=== PATIENT | male | born 1955 | race Caucasian/White ===

== ENCOUNTER → 2018-02-11 07:52 | Outpatient (CLI) | payer MEDICARE, BC, SELFPAY ==
[2018-02-11 08:40] LABS: Add Manual Diff / Slide Review NO; Basophils Percent Auto 0.4 % (0-2); Eosinophils Percent Auto 1.7 % (2-4); Hematocrit 47.3 % (41-53); Hemoglobin 16.8 g/dL (13.5-17.5); Lymphocytes Percent Auto 24.6 % (25-40); Mean Corpuscular HGB Conc 35.5 % (30-36); Mean Corpuscular Hemoglobin 32.4 PG (26-34); Mean Corpuscular Volume 91.2 fL (80-100); Monocytes Percent Auto 8.6 % (3-14); Neutrophils Absolute Auto 5000 /uL (3000-5900); Neutrophils Percent Auto 64.7 % (50-75); Platelet Count 225 X10^3/uL (150-400); Red Blood Cell Count 5.19 X10^6/uL (4.5-5.9); White Blood Cell Count 7.7 X10^3/uL (4.5-11.0)
[2018-02-11 09:17] LABS: Alanine Aminotransferase 26 IU/L (21-72); Albumin 4.4 g/dL (3.5-5.0); Albumin Globulin Ratio 1.6 (1.0-2.8); Alkaline Phosphatase 96 U/L (38-126); Aspartate Aminotransferase 20 IU/L (17-59); BUN Creatinine Ratio 16.3 (6-22); Bilirubin Total 0.7 mg/dL (0.2-1.3); Blood Urea Nitrogen 13 mg/dL (9-20); Calcium 9.5 mg/dL (8.4-10.2); Carbon Dioxide 31 mmol/L (22-32); Chloride 103 mmol/L (98-107); Cholesterol 242 mg/dL (140-199); Estimated Glomerular Filt Rate > 60.0 mL/min (>60); Globulin 2.7 g/dL (1.7-4.1); Glucose 92 mg/dL (80-110); HDL Cholesterol 54 mg/dL (40-60); HEMOLYSIS < 15 (0-50); LDL Cholesterol Calculated 150 mg/dL (<100); Potassium 4.9 mmol/L (3.4-5.1); Sodium 141 mmol/L (137-145); Total Protein 7.1 g/dL (6.3-8.2); Triglycerides 188 mg/dL (35-150)
[2018-02-11 09:42] LABS: Prostate Specific Antigen Scrn 1.65 ng/mL (0.1-4.0)
[2018-02-11 09:54] LABS: TSH w/ Reflex to FT4 2.13 uIU/mL (0.47-4.68)
== END ==
PROVIDERS: PCP Family Medicine; Visit Provider Family Medicine
DX: M47.22 Other spondylosis with radiculopathy, cervical region (principal); R42 Dizziness and giddiness
CPT/HCPCS: 36415; 80053; 80061; 84443; 85025; G0103

== ENCOUNTER 2020-02-13 16:38 | Emergency (ER) | payer MEDICARE, BC, SELFPAY ==
[2020-02-13] VITALS (22 sets, daily range): BP systolic 84–126; BP diastolic 53–86; PULSE 97–197; RESP 10–34; TEMP 36; O2SAT 94–100; BMI 25.7
--- NOTE | 2020-02-13 16:41 | DI.RAD.S_ITS ---
PROCEDURE: XR CHEST 1V INDICATIONS: chest pain TECHNIQUE: One view of the chest was acquired. COMPARISON: [facility], , CHEST 1 VIEW, 03/12/2011, 7:53. FINDINGS: Surgical changes and devices: None. Lungs and pleura: Subtle opacity in right lower lung field is seen, early developing right lower lobe infiltrates cannot be excluded. Left lung is clear. No pleural effusions or pneumothorax. Mediastinum: Mediastinal contours appear normal. Heart size is normal. Bones and chest wall: No suspicious bony lesions. Overlying soft tissues appear unremarkable. IMPRESSION: Subtle opacities in the right lower lung field concerning for developing right lower lobe infiltrates. No pleural effusion or pneumothorax. Dictated by: Last Moreland M.D. on 02/13/2020 at 17:36 Approved by: Last Moreland M.D. on 02/13/2020 at 17:36
--- NOTE | 2020-02-13 16:45 | ED_ITS ---
HPI - Arrhythmia/Palpitations General Chief Complaint: Arrhythmia/Palpitations Stated Complaint: high heart rate Time Seen by Provider: 02/13/20 16:43 Source: patient Mode of arrival: Ambulatory Limitations: no limitations History of Present Illness HPI narrative: Patient is a 64-year-old male with history of SVT presenting with dizziness and lightheadedness and tachycardia. He states he was pulling a metal piece out of something and was working extremely hard when he got lightheaded. He knew he had gone into SVT he tried getting himself out of it he even tried putting his face in ice water which has worked for him in the past but he was unsuccessful. Which is when he decided to go to the emergency department. He is found to be tachycardic with a heart rate in the 190s and hypotensive. He denies any shortness of breath MD complaint: rapid heart beat Duration: constant Context: occurred during exertion Arrhythmia history: SVT Related Data Home Medications Medication Instructions Recorded Confirmed No Known Home Medications 02/10/18 05/16/19 Allergies Allergy/AdvReac Type Severity Reaction Status Date / Time No Known Drug Allergies Allergy Verified 05/16/19 12:13 Review of Systems Review of Systems Narrative: GENERAL: Denies chills, fatigue, malaise, fever, sweats, travel HEENT: Denies sinus pain, ear pain, sore throat, difficulty swallowing, neck pain RESPIRATORY: Denies dyspnea, cough, wheezing, hemoptysis, sputum. CARDIOVASCULAR: See HPI GASTROINTESTINAL: Denies nausea, vomiting, abdominal pain, diarrhea, constipation, melena. : Denies dysuria, frequency, incontinence, hematuria, urinary retention, flank pain. MUSCULOSKELETAL: Denies weakness, joint pain, or bony pain SKIN: No rash, no erythema, no pruritus NEUROLOGIC: Denies weakness, dizziness, headache, numbness, change in speech, confusion PSYCHIATRIC: No concerning psychosocial issues. 12 point review of systems is negative except for those stated above and HPI Patient History Medical History Alcohol abuse (12/14/15) Cannabis abuse (01/11/15) Cervical radiculopathy due to osteoarthritis of spine (01/11/15) Chronic pain syndrome (12/14/15) Major depressive disorder Moderate episode of recurrent major depressive disorder (12/14/15) Screening for depression (12/14/15) SVT (supraventricular tachycardia) (Acute) Family History Mother Age: 86 Fibromyalgia Sister Age: 64 Overweight Sister Age: 54 Overweight Social History marital status: Smoking Status: Current every day smoker alcohol intake: current (1-2 A DAY ) substance use type: does not use Smoking Status: Current every day smoker alcohol intake frequency: 0-2 drinks per day Substance Use Type: does not use Exam Initial Vital Signs Initial Vital Signs: Vital Signs Temperature 96.8 F L 02/13/20 16:39 Pulse Rate 197 H 02/13/20 16:39 Respiratory Rate 22 02/13/20 16:39 Blood Pressure 84/53 L 02/13/20 16:39 Pulse Oximetry 98 02/13/20 16:39 GENERAL: Alert well-appearing male HEENT: Head atraumatic,EOMI, pupils reactive, face symmetric, moist mucous membranes CARDIOVASCULAR: Regular tachycardic RESPIRATORY: Breath sounds equal bilaterally, no wheezes rales or rhonchi. ABDOMEN: Soft, nontender. Normoactive bowel sounds all 4 quadrants. No guarding or rebound. EXTREMITIES: Normal range of motion, no clubbing or edema. Neurovascularly intact NEUROLOGICAL: Alert and oriented x4.Normal gait and speech. Cranial nerves II through XII grossly intact. SKIN: Warm, dry, no laceration, no petechiae, no rashes or lesions. Procedures Cardioversion Consent Signed: Yes Indication: Hypotensive tachycardia Stability: Unstable Number of attempts (shocks): 1 Joules used: 150 Cardiac rhythm post-cardioversion: Normal sinus rhythm Procedural Sedation Consent signed: Yes Time out performed: Yes Indication: cardioversion ASA Class: I Mallampati Airway Classification: Class I Preparation: telemetry monitor applied, pulse oximeter, capnometry used, supplemental O2 applied, suction/airway equipment at bedside and IV secured IV Etomidate dose (mg): 8 Intraservice time/total sedation time (min): 12 ED Sedation Level: Moderate (Concious) Patient Tolerated Procedure: Well Complications: none Course Orders Ordered: ED Orders 02/13/20 16:41 XR chest 1V Stat 02/13/20 16:42 EKG-12 Lead Stat 02/13/20 17:03 EKG-12 Lead Routine 02/13/20 17:11 Complete Blood Count AUTO DIFF Stat Comprehensive Metabolic Panel Stat Lipase Stat Partial Thromboplastin Time Stat Prothrombin Time INR Stat Troponin & CK Cardiac Panel Stat Discontinued Medications Etomidate (Amidate) 8 mg IV NOW ONE Stop: 02/13/20 16:59 Last Admin: 02/13/20 16:58 Dose: 8 mg Documented by: SHWETA Sodium Chloride (Normal Saline 0.9%) 1,000 mls @ 1,000 mls/hr IV BOLUS ONE Stop: 02/13/20 18:31 Last Infusion: 02/13/20 17:50 Dose: 0 mls/hr Documented by: Admin: 02/13/20 16:50 Dose: 1,000 mls/hr Documented by: SHWETA Vital Signs Vital signs: Vital Signs - 8 hr 02/13/20 16:39 02/13/20 16:50 02/13/20 16:53 Temperature 96.8 F L Pulse Rate 197 H 194 H 194 H Respiratory Rate 22 10 L 14 Blood Pressure 84/53 L 87/61 L Pulse Oximetry 98 100 100 02/13/20 16:55 02/13/20 17:00 02/13/20 17:05 Temperature Pulse Rate 194 H 110 H 100 H Respiratory Rate 12 34 H 17 Blood Pressure 89/63 L 126/80 115/74 Pulse Oximetry 99 99 100 02/13/20 17:10 02/13/20 17:11 02/13/20 17:15 Temperature Pulse Rate 99 H 100 H 97 H Respiratory Rate 21 26 H 16 Blood Pressure 119/70 119/70 101/69 Pulse Oximetry 100 100 100 02/13/20 17:20 02/13/20 17:25 02/13/20 17:30 Temperature Pulse Rate 100 H 100 H 98 H Respiratory Rate 19 19 20 Blood Pressure 124/80 122/72 122/69 Pulse Oximetry 99 100 100 02/13/20 17:35 02/13/20 17:40 02/13/20 17:45 Temperature Pulse Rate 99 H 99 H 100 H Respiratory Rate 22 14 17 Blood Pressure 118/73 Pulse Oximetry 99 99 98 02/13/20 17:50 02/13/20 17:55 02/13/20 18:00 Temperature Pulse Rate 100 H 100 H 100 H Respiratory Rate 15 27 H 16 Blood Pressure 119/73 120/74 Pulse Oximetry 97 98 96 02/13/20 18:05 02/13/20 18:10 02/13/20 18:11 Temperature Pulse Rate 100 H 101 H 104 H Respiratory Rate 16 28 H 21 Blood Pressure 124/86 Pulse Oximetry 95 96 94 02/13/20 18:18 Temperature Pulse Rate 106 H Respiratory Rate 16 Blood Pressure 124/86 Pulse Oximetry 97 MDM - Arrhythmia/Palpitations Lab Data Attestation: I reviewed the patient's lab results. Result diagrams: 02/13/20 17:11 02/13/20 17:11 Labs: Lab Results 02/13/20 02/13/20 02/13/20 Range/Units 17:11 17:11 17:11 WBC 11.6 H (4.5-11.0) X10^3/uL RBC 5.04 (4.5-5.9) X10^6/uL Hgb 15.7 (13.5-17.5) g/dL Hct 46.5 (41-53) % MCV 92.1 (80-100) fL MCH 31.2 (26-34) PG MCHC 33.9 (30-36) % RDW 12.8 (11.6-14.8) % Plt Count 216 (150-400) X10^3/uL Neut % (Auto) 68.6 (50-75) % Lymph % (Auto) 19.9 L (25-40) % [place] % (Auto) 10.2 (3-14) % Eos % (Auto) 0.5 L (2-4) % Baso % (Auto) 0.8 (0-2) % Neut # (Auto) 8000 H (3002-6801) /uL Lymph # (Auto) 2300 (1070-8124) /uL [place] # (Auto) 1200 H (0-900) /uL Eos # (Auto) 100 (0-450) /uL Baso # (Auto) 100 (0-100) /uL PT 11.3 (10.1-12.7) SECONDS INR 1.0 (0.9-1.3) APTT 41 H (26.4-36.2) SECONDS Sodium 135 L (137-145) mmol/L Potassium 4.4 (3.4-5.1) mmol/L Chloride 103 (98-107) mmol/L Carbon Dioxide 25 (22-32) mmol/L BUN 14 (9-20) mg/dL Creatinine 0.96 (0.66-1.25) mg/dL Estimated GFR > 60.0 (>60) mL/min BUN/Creatinine Ratio 14.6 (6-22) Glucose 106 (80-110) mg/dL Calcium 9.1 (8.4-10.2) mg/dL Total Bilirubin 0.5 (0.2-1.3) mg/dL AST 26 (17-59) IU/L ALT 22 (<50) IU/L Alkaline Phosphatase 101 (38-126) U/L Total Creatine Kinase 67 (55-170) U/L CK-MB (CK-2) TNP CK-MB (CK-2) Rel Index TNP Troponin I 0.050 H (0.01-0.034) ng/mL Total Protein 6.5 (6.3-8.2) g/dL Albumin 4.0 (3.5-5.0) g/dL Globulin 2.5 (1.7-4.1) g/dL Albumin/Globulin Ratio 1.6 (1.0-2.8) Lipase 57 (23-300) U/L Imaging Data Chest x-ray: Radiologist's Impresson: PROCEDURE: XR CHEST 1V INDICATIONS: chest pain TECHNIQUE: One view of the chest was acquired. COMPARISON: [facility], CHEST 1 VIEW, 03/12/2011, 7:53. FINDINGS: Surgical changes and devices: None. Lungs and pleura: Subtle opacity in right lower lung field is seen, early developing right lower lobe infiltrates cannot be excluded. Left lung is clear. No pleural effusions or pneumothorax. Mediastinum: Mediastinal contours appear normal. Heart size is normal. Bones and chest wall: No suspicious bony lesions. Overlying soft tissues appear unremarkable. IMPRESSION: Subtle opacities in the right lower lung field concerning for developing right lower lobe infiltrates. No pleural effusion or pneumothorax. Dictated by: Last Moreland M.D. on 02/13/2020 at 17:36 Approved by: Last Moreland M.D. on 02/13/2020 at 17:36 ECG Data Attestation: I personally reviewed and interpreted this ECG as follows: Prior ECG tracings: available for review Interpretation: SVT rate 191 MDM Narrative Medical decision making narrative: The patient is hypotensive and tachycardic, he is awake alert and oriented however adenosine and other medications are contraindicated and he is unstable. Initially tried a modified Valsalva on however unsuccessful, also tried carotid massage also unsuccessful. He has successfully cardioverted with 1 shock. Blood pressure and heart rate improved. His ride is now here to pick him up. Discharge Plan Departure Patient Disposition: Home Clinical Impression: SVT (supraventricular tachycardia) Discharge Date/Time: 02/13/20 18:18 Instructions: Paroxysmal Supraventricular Tachycardia Activity Restrictions/Additional Instructions: *You have been diagnosed with SVT *What to do: You may qualify for something called an ablation if you are having frequent episodes he will need to have Cardiology referral by your PCP *Continue to take medications as directed *Follow up with your primary care provider in 2-3 days *Return to ER if you should have increasing chest pain lightheadedness dizziness shortness of breath or any new, worsening or concerning symptoms Prescriptions: No Action No Known Home Medications RF: 0 Referrals: Darrin Amaro MD [Primary Care Provider] -
[2020-02-13] MEDS: SODIUM CHLORIDE 0.9% 1,000 ML 1000 ML IV (16:50)
[2020-02-13] MEDS: ETOMIDATE 2 MG/ML 10 ML VIAL 8 MG IV (16:58)
[2020-02-13 17:21] LABS: Add Manual Diff / Slide Review NO; Basophils Absolute Auto 100 /uL (0-100); Basophils Percent Auto 0.8 % (0-2); Eosinophils Absolute Auto 100 /uL (0-450); Eosinophils Percent Auto 0.5 % (2-4); Hematocrit 46.5 % (41-53); Hemoglobin 15.7 g/dL (13.5-17.5); Lymphocytes Absolute Auto 2300 /uL (1100-4500); Lymphocytes Percent Auto 19.9 % (25-40); Mean Corpuscular HGB Conc 33.9 % (30-36); Mean Corpuscular Hemoglobin 31.2 PG (26-34); Mean Corpuscular Volume 92.1 fL (80-100); Monocytes Absolute Auto 1200 /uL (0-900); Monocytes Percent Auto 10.2 % (3-14); Neutrophils Absolute Auto 8000 /uL (1500-7000); Neutrophils Percent Auto 68.6 % (50-75); Platelet Count 216 X10^3/uL (150-400); Red Blood Cell Count 5.04 X10^6/uL (4.5-5.9); Red Cell Distribution Width 12.8 % (11.6-14.8); White Blood Cell Count 11.6 X10^3/uL (4.5-11.0)
[2020-02-13 17:29] LABS: Prothrombin Time 11.3 SECONDS (10.1-12.7)
[2020-02-13 17:31] LABS: PTT Partial Thromboplastin Tim 41 SECONDS (26.4-36.2)
[2020-02-13 17:32] LABS: Alanine Aminotransferase 22 IU/L (<50); Albumin Globulin Ratio 1.6 (1.0-2.8); Alkaline Phosphatase 101 U/L (38-126); Aspartate Aminotransferase 26 IU/L (17-59); BUN Creatinine Ratio 14.6 (6-22); Bilirubin Total 0.5 mg/dL (0.2-1.3); Blood Urea Nitrogen 14 mg/dL (9-20); Calcium 9.1 mg/dL (8.4-10.2); Carbon Dioxide 25 mmol/L (22-32); Chloride 103 mmol/L (98-107); Creatine Kinase 67 U/L (55-170); Estimated Glomerular Filt Rate > 60.0 mL/min (>60); Globulin 2.5 g/dL (1.7-4.1); Glucose 106 mg/dL (80-110); HEMOLYSIS < 15 (0-50); Lipase 57 U/L (23-300); Potassium 4.4 mmol/L (3.4-5.1); Sodium 135 mmol/L (137-145); Total Protein 6.5 g/dL (6.3-8.2)
== END 2020-02-13 18:18 | disposition home or self-care (01) ==
PROVIDERS: Emergency Provider Emergency Medicine; PCP Family Medicine
DX: I47.1 Supraventricular tachycardia (principal)
CPT/HCPCS: 36415; 71045; 80053; 82550; 83690; 84484; 85025; 85610; 85730; 92960; 93005; 93010; 96360; 99152; 99285; 99291

== ENCOUNTER → 2020-10-12 09:41 | Outpatient (CLI) | payer MEDICARE, BC, SELFPAY ==
[2020-10-12] MEDS: COVID-19 VACC, Ad26(JANSSEN)/PF 0.5 ML IM (09:50)
== END ==
PROVIDERS: PCP Family Medicine; Visit Provider Internal Medicine
DX: Z23 Encounter for immunization (principal)
CPT/HCPCS: 0031A; 91303

== ENCOUNTER → 2021-01-31 09:03 | Outpatient (CLI) | payer MEDICARE, BC, SELFPAY ==
[2021-01-31 10:13] LABS: Add Manual Diff / Slide Review NO; Basophils Absolute Auto 0 /uL (0-100); Basophils Percent Auto 0.6 % (0-2); Eosinophils Absolute Auto 100 /uL (0-450); Eosinophils Percent Auto 1.1 % (2-4); Hematocrit 45.4 % (41-53); Hemoglobin 15.6 g/dL (13.5-17.5); Lymphocytes Absolute Auto 1900 /uL (1100-4500); Lymphocytes Percent Auto 27.4 % (25-40); Mean Corpuscular HGB Conc 34.4 % (30-36); Mean Corpuscular Hemoglobin 31.4 PG (26-34); Mean Corpuscular Volume 91.1 fL (80-100); Monocytes Absolute Auto 700 /uL (0-900); Monocytes Percent Auto 10.5 % (3-14); Neutrophils Absolute Auto 4200 /uL (1500-7000); Neutrophils Percent Auto 60.4 % (50-75); Platelet Count 225 X10^3/uL (150-400); Red Blood Cell Count 4.98 X10^6/uL (4.5-5.9); Red Cell Distribution Width 12.8 % (11.6-14.8); White Blood Cell Count 6.9 X10^3/uL (4.5-11.0)
[2021-01-31 10:38] LABS: Alanine Aminotransferase 18 IU/L (<50); Albumin 4.1 g/dL (3.5-5.0); Albumin Globulin Ratio 1.5 (1.0-2.8); Alkaline Phosphatase 88 U/L (38-126); Aspartate Aminotransferase 22 IU/L (17-59); BUN Creatinine Ratio 14.3 (6-22); Bilirubin Total 0.5 mg/dL (0.2-1.3); Blood Urea Nitrogen 11 mg/dL (9-20); Calcium 9.3 mg/dL (8.4-10.2); Carbon Dioxide 30 mmol/L (22-32); Chloride 105 mmol/L (98-107); Cholesterol 234 mg/dL (140-199); Estimated Glomerular Filt Rate > 60.0 mL/min (>60); Globulin 2.7 g/dL (1.7-4.1); Glucose 96 mg/dL (80-110); HDL Cholesterol 46 mg/dL (40-60); HEMOLYSIS < 15 (0-50); LDL Cholesterol Calculated 165 mg/dL (<100); Potassium 4.4 mmol/L (3.4-5.1); Sodium 138 mmol/L (137-145); Total Protein 6.8 g/dL (6.3-8.2); Triglycerides 116 mg/dL (35-150)
[2021-01-31 11:08] LABS: Prostate Specific Antigen Scrn 1.64 ng/mL (0.1-4.0)
== END ==
PROVIDERS: PCP Family Medicine; Referring Provider Family Medicine; Visit Provider Family Medicine
DX: E78.5 Hyperlipidemia, unspecified (principal); Z12.5 Encounter for screening for malignant neoplasm of prostate; F10.10 Alcohol abuse, uncomplicated; I47.1 Supraventricular tachycardia
CPT/HCPCS: 36415; 80053; 80061; 85025; G0103

== ENCOUNTER → 2021-06-14 08:33 | Outpatient (CLI) | payer MEDICARE, BC, SELFPAY ==
[2021-06-14] MEDS: COVID-19 VACC #3, MRNA(MOD) 50 MCG/0.25 ML VIAL IM (08:36)
== END ==
PROVIDERS: PCP Family Medicine; Visit Provider Internal Medicine
DX: Z23 Encounter for immunization (principal)
CPT/HCPCS: 0013A; 91301

== ENCOUNTER → 2023-06-04 07:31 | Outpatient (CLI) | payer MEDICARE, SELFPAY ==
[2023-06-04 09:35] LABS: Add Manual Diff / Slide Review NO; Basophils Absolute Auto 100 /uL (0-100); Basophils Percent Auto 0.6 % (0-2); Eosinophils Absolute Auto 100 /uL (0-450); Eosinophils Percent Auto 1.3 % (2-4); Hematocrit 45.8 % (41-53); Hemoglobin 16.1 g/dL (13.5-17.5); Lymphocytes Absolute Auto 1700 /uL (1100-4500); Lymphocytes Percent Auto 20.9 % (25-40); Mean Corpuscular HGB Conc 35.1 % (30-36); Mean Corpuscular Hemoglobin 31.9 PG (26-34); Monocytes Absolute Auto 800 /uL (0-900); Monocytes Percent Auto 9.2 % (3-14); Neutrophils Absolute Auto 5600 /uL (1500-7000); Platelet Count 237 X10^3/uL (150-400); Red Blood Cell Count 5.04 X10^6/uL (4.5-5.9); White Blood Cell Count 8.2 X10^3/uL (4.5-11.0)
[2023-06-04 10:00] LABS: Alanine Aminotransferase 22 IU/L (<50); Albumin 4.1 g/dL (3.5-5.0); Albumin Globulin Ratio 1.6 (1.0-2.8); Alkaline Phosphatase 91 U/L (38-126); Aspartate Aminotransferase 24 IU/L (17-59); BUN Creatinine Ratio 13.9 (6-22); Bilirubin Total 0.6 mg/dL (0.2-1.3); Blood Urea Nitrogen 11 mg/dL (9-20); Calcium 9.6 mg/dL (8.4-10.2); Carbon Dioxide 27 mmol/L (22-32); Chloride 103 mmol/L (98-107); Cholesterol 238 mg/dL (140-199); Estimated Glomerular Filt Rate > 60 mL/min (>60); Globulin 2.5 g/dL (1.7-4.1); Glucose 87 mg/dL (80-110); HDL Cholesterol 50 mg/dL (40-60); HEMOLYSIS < 15 (0-50); LDL Cholesterol Calculated 157 mg/dL (<100); Potassium 5.2 mmol/L (3.4-5.1); Sodium 138 mmol/L (137-145); Total Protein 6.6 g/dL (6.3-8.2); Triglycerides 153 mg/dL (35-150)
[2023-06-04 10:21] LABS: TSH w/ Reflex to FT4 1.81 uIU/mL (0.47-4.68)
[2023-06-04 10:27] LABS: Prostate Specific Antigen Scrn 2.08 ng/mL (0.1-4.0)
[2023-06-04 10:29] LABS: Testosterone 449 ng/dL (71.8-623)
== END ==
PROVIDERS: PCP Family Medicine; Referring Provider Physician Assistant; Visit Provider Physician Assistant
DX: F33.1 Major depressive disorder, recurrent, moderate (principal); E78.5 Hyperlipidemia, unspecified; Z12.5 Encounter for screening for malignant neoplasm of prostate; Z72.0 Tobacco use; R53.83 Other fatigue; F41.9 Anxiety disorder, unspecified; I47.10 Supraventricular tachycardia, unspecified
CPT/HCPCS: 36415; 80053; 80061; 84403; 84443; 85025; G0103

== ENCOUNTER → 2024-11-16 07:49 | Outpatient (CLI) | payer MEDICARE, SELFPAY | LOC: CAR 07:50 | PROVIDERS: PCP Family Medicine; Referring Provider Family Medicine; Visit Provider Family Medicine | DX: I47.10 Supraventricular tachycardia, unspecified (principal) | CPT/HCPCS: 93246 ==

== ENCOUNTER → 2024-11-30 06:52 | Outpatient (CLI) | payer MEDICARE, SELFPAY ==
--- NOTE | 2024-11-30 06:53 | DI.ECHO.S_ITS ---
[facility] : : [address] : : [place] : : [id number] : : Phone: [phone] Echocardiogram Report + + :Name: JOSUE HERNANDEZ Study Date: 11/30/2024 Height: 71 in : :[facility] ReadingLocation: Weight: 185 lb : : Gender: Male BSA: 2.0 m2 : :: 1955 Age: 68 yrs BP: 123/79 mmHg: :Reason For Study: SUPRAVENTRICULAR TACHYCARDIA : :Ordering Physician: HARIS, : :NICOLE Performed By: Escobar Chase : :Referring: NICOLE CARBALLO : + + Interpretation Summary The ejection fraction is estimated to be 65-70%. Diastolic parameters suggest probable normal left ventricular diastolic function and normal filling pressures. The right ventricle is normal in size and function. No significant valvular abnormalities. Pulmonary artery pressures cannot be estimated because of the lack of a measurable TR jet velocity but the IVC suggests a CVP of around 3 mmHg. There is a trivial pericardial effusion noted. Procedure: A two-dimensional transthoracic echocardiogram with color flow and Doppler was performed. The study quality was technically adequate. There is no prior echocardiogram noted for this patient. The patient was in normal sinus rhythm during the exam. Left Ventricle: The left ventricle is normal in size. Left ventricular wall thickness is at the upper limits of normal. Left ventricular systolic function is normal. The ejection fraction is estimated to be 65-70%. There are no focal wall motion abnormalities. Diastolic parameters suggest probable normal left ventricular diastolic function and normal filling pressures. Right Ventricle: The right ventricle is normal in size and function. Atria: Both atria are normal in size. Mitral Valve: The mitral valve leaflets appear to open well. There is no mitral annular calcification. There is no mitral valve stenosis. There is no mitral regurgitation noted. Aortic Valve: The aortic valve is trileaflet. The aortic valve opens well. There is no aortic valve stenosis. No aortic regurgitation is present. Tricuspid Valve: The tricuspid valve leaflets are thin and pliable. There is a trace or physiologic amount of tricuspid regurgitation. Pulmonary artery pressures cannot be estimated because of the lack of a measurable TR jet velocity but the IVC suggests a CVP of around 3 mmHg. Pulmonic Valve: The pulmonic valve is not well seen, but is grossly normal. There is a trace or physiologic amount of pulmonic regurgitation. Great Vessels: The aortic root is normal size. The ascending aorta is normal in size. The aortic arch is normal in size. The pulmonary artery is not well visualized, but is probably normal size. The IVC is of normal diameter and collapses greater than 50% with a sniff. This suggests a low right atrial pressure of 3 mm Hg. Pericardium/ Pleura There is a trivial pericardial effusion noted. There is an anterior echo-free space consistent with a fat pad. MMode/2D Measurements & Calculations LVIDd: 4.2 cm LVOT diam: 2.2 cm LVIDs: 2.3 cm Ao root diam: 2.8 cm FS: 46.5 % asc Aorta Diam: 2.4 cm IVSd: 1.2 cm Ao Arch Diam (Prox Trans): 2.3 cm LVPWd: 1.1 cm LV [place]. diameter/BSA (cm/m^2): 2.1 LV sys. diameter/BSA (cm/m^2): 1.1 LA A2 area: 14.9 cm2 RA long axis: 4.4 cm LA A4 area: 12.2 cm2 RA area: 13.4 cm2 LA length (vol): 4.0 cm RA vol: 34.9 ml LA vol: 38.2 ml RA : 17.1 ml/m2 LA vol index: 18.7 ml/m2 IVC diam: 1.4 cm RVD1 (basal): 3.6 cm RVD2 (mid): 3.1 cm TAPSE: 1.7 cm Doppler Measurements & Calculations Ao V2 max: 140.6 cm/sec LVOT Max Christoph: 140.0 cm/sec Ao V2 mean: 110.2 cm/sec LV V1 max P.8 mmHg Ao max P.9 mmHg LV V1 VTI: 19.2 cm Ao mean P.2 mmHg SUNSHINE(I,D): 3.2 cm2 Ao V2 VTI: 22.0 cm SUNSHINE(V,D): 3.6 cm2 sev ratio: 0.87 SUNSHINE indexed to BSA (cm^2/m^2): 1.6 MV E max christoph: 56.3 cm/sec PA V2 max: 141.1 cm/sec MV A max christoph: 71.9 cm/sec PA V2 mean: 81.2 cm/sec MV E/A: 0.78 PA mean P.2 mmHg Med Peak E' Christoph: 6.8 cm/sec PA pr(Accel): 36.2 mmHg E/E' med: 8.3 Lat Peak E' Christoph: 5.5 cm/sec E/E' lat: 10.2 E/e' average: 9.2 MV dec time: 0.16 sec SV(LVOT): 70.3 ml Reading Physician:12:48 PM
--- NOTE | 2024-12-05 17:27 | DI.NM.S_ITS ---
DATE OF SERVICE: 11/30/2024 CARDIAC NUCLEAR MYOCARDIAL PERFUSION STUDY PROCEDURE: Pharmacologic vasodilator stress and rest myocardial perfusion imaging with gating to assess ejection fraction and regional wall motion. ORDERING PROVIDER: Darrin Amaro MD. INDICATIONS: The patient is a 68-year-old male with recurrent SVT and tobacco use. CARDIAC STRESS: Per protocol, 0.4 mg of regadenoson was infused with a normal hemodynamic response. He had no chest discomfort or other anginal symptoms. His resting ECG shows LBBB with associated ST-segment abnormalities which precludes ST-segment analysis, but there are no obvious ST-segment shifts or arrhythmias. Per protocol, he was injected with 25.2 mCi of technetium-99m Myoview and imaged 15 minutes later using a gated SPECT acquisition protocol. Five days later, he returned and was re-injected with an additional 26.9 mCi of technetium-99m Myoview and imaged 15 minutes later, again using a gated SPECT acquisition protocol. FINDINGS: 1. Raw data: There is fair myocardial tracer uptake with slight motion noted. The lung/heart ratio is normal at 0.24 with a normal TID ratio of 0.87. 2. Quantitated gated SPECT: Post-stress ejection fraction is 77% without any focal wall motion abnormality. Specifically, the distant anterior wall and apex have normal contractility. The resting ejection fraction is 75% with a normal resting end-diastolic volume of 111 mL. 3. Myocardial perfusion imaging: Post-stress supine images show a rama-en-bnleoqlc perfusion defect throughout the inferior wall, more notable near the apex, as well as reduced tracer activity in the distal septum, a common artifactual defect produced by LBBB. The prone images show marked improvement in these defects, although with a slight residual defect in the distal inferior wall, suggesting this could reflect a true perfusion defect. The resting images show an identical perfusion pattern to the post-stress supine images without any clear areas of improvement. IMPRESSION: 1. Probable normal, low-risk nuclear perfusion study. 2. Mild fixed dos-vh-tzagov septal defect, most likely attributable to LBBB artifact. In addition, there is a lulvj-sk-mjfsvozt fixed inferior perfusion defect that mostly resolves on prone imaging but with a small persistent defect distally, which could reflect a previous nontransmural infarction but the absence of any wall motion abnormality mitigates against this, and the pattern is consistent with some degree of attenuation artifact. There is no evidence for any myocardial ischemia. 3. Normal left ventricular systolic function without any focal wall motion abnormality. 4. No angina with pharmacologic vasodilator stress. The presence of an LBBB precludes ST-segment analysis but there are no significant ST- segment shifts or arrhythmias seen. Finesse Russo - RS/fn/IL doc#: [id number]/job#: [id number] dd: 12/05/2024 16:54:00 dt: 12/05/2024 17:02:00 DICTATING MD/COPIES TO: Drew Ramirez MD; Darrin Amaro MD COPIES MNE: PAPITO;
== END ==
PROVIDERS: PCP Family Medicine; Referring Provider Family Medicine; Visit Provider Family Medicine
DX: I47.10 Supraventricular tachycardia, unspecified (principal); I44.7 Left bundle-branch block, unspecified; E78.5 Hyperlipidemia, unspecified
CPT/HCPCS: 78452; 93017; 93306; A9502; J2785

== ENCOUNTER 2024-12-27 15:45 | Emergency (ER) | payer MEDICARE, SELFPAY ==
[2024-12-27 15:53] VITALS: PULSE 200; RESP 20; TEMP 36.4; O2SAT 95; BMI 25.4
--- NOTE | 2024-12-27 15:56 | EKG_ITS ---
[facility] [address] [place] [address] Test Date: 2024-12-27 Pat Name: Finesse Russo Department: Room: Gender: Male Formal Waiter/Waitress: SAGAR : 1955 Requested By: Order Number: [id number] Reading MD: Kevin Camacho Measurements Intervals [place] Rate: 205 P: [place]: QRS: 48 QRSD: 100 T: 174 QT: 232 QTc: 428 Interpretive Statements Critical Test Result: High HR Supraventricular tachycardia Septal infarct , age undetermined Marked ST abnormality, possible inferior subendocardial injury Electronically Signed On 12-28-2024 7:45:35 PDT by Kevin Camacho
--- NOTE | 2024-12-27 15:58 | DI.RAD.S_ITS ---
PROCEDURE: XR CHEST 1V INDICATIONS: SVT at 200+ TECHNIQUE: One view of the chest was acquired. COMPARISON: [facility], [facility], XR CHEST 1V, 02/13/2020, 16:53. FINDINGS: Surgical changes and devices: None. Lungs and pleura: Lungs are clear. No pleural effusions or pneumothorax. Previously seen right lower lung zone opacities have resolved. No new dense consolidations. Mediastinum: Mediastinal contours appear normal. Heart size is normal. Bones and chest wall: No suspicious bony lesions. Overlying soft tissues appear unremarkable. IMPRESSION: No acute cardiopulmonary abnormality is seen. Dictated by: Chilango Bah M.D. on 12/27/2024 at 17:30 Approved by: Chilango Bah M.D. on 12/27/2024 at 17:31
[2024-12-27] MEDS: ADENOSINE 6 MG/2 ML VIAL 12 MG IV (16:00)
[2024-12-27 16:15] LABS: Add Manual Diff / Slide Review NO; Basophils Absolute Auto 0 /uL (0-100); Basophils Percent Auto 0.5 % (0-2); Eosinophils Absolute Auto 100 /uL (0-450); Eosinophils Percent Auto 1.3 % (2-4); Hematocrit 49.6 % (41-53); Lymphocytes Absolute Auto 2900 /uL (1100-4500); Lymphocytes Percent Auto 30.6 % (25-40); Mean Corpuscular HGB Conc 34.2 % (30-36); Mean Corpuscular Hemoglobin 31.4 PG (26-34); Mean Corpuscular Volume 91.6 fL (80-100); Monocytes Absolute Auto 800 /uL (0-900); Monocytes Percent Auto 8.8 % (3-14); Neutrophils Absolute Auto 5600 /uL (1500-7000); Neutrophils Percent Auto 58.8 % (50-75); Platelet Count 234 X10^3/uL (150-400); Red Blood Cell Count 5.41 X10^6/uL (4.5-5.9); Red Cell Distribution Width 12.9 % (11.6-14.8); White Blood Cell Count 9.5 X10^3/uL (4.5-11.0)
[2024-12-27 16:17] LABS: Alanine Aminotransferase 25 IU/L (<50); Albumin 4.5 g/dL (3.5-5.0); Alkaline Phosphatase 89 U/L (38-126); Aspartate Aminotransferase 37 IU/L (17-59); BUN Creatinine Ratio 15.3 (6-22); Bilirubin Total 0.5 mg/dL (0.2-1.3); Blood Urea Nitrogen 18 mg/dL (9-20); Carbon Dioxide 27 mmol/L (22-32); Estimated Glomerular Filt Rate > 60 mL/min (>60)
--- NOTE | 2024-12-27 16:17 | EKG_ITS ---
[address] [address] Test Date: 2024-12-27 Pat Name: Finesse Russo Department: Room: Gender: Male Insurance Customer Service Specialist: SAGAR : 1955 Requested By: Order Number: [id number] Reading MD: Geraldo Cornelius Measurements Intervals [place] Rate: 110 P: 78 [place]: 194 QRS: 20 QRSD: 122 T: 92 QT: 336 QTc: 454 Interpretive Statements Sinus tachycardia Left bundle branch block Electronically Signed On 12-31-2024 16:22:33 PDT by Geraldo Cornelius
[2024-12-27 16:18] VITALS: PULSE 109; RESP 20; O2SAT 97
[2024-12-27 16:29] LABS: Troponin I < 0.012 ng/mL (0.01-0.034)
[2024-12-27 16:30] VITALS: PULSE 111; RESP 22; O2SAT 96
[2024-12-27 16:33] VITALS: BP 107/64; PULSE 111; RESP 19; O2SAT 97
[2024-12-27 16:48] LABS: Albumin Globulin Ratio 1.6 (1.0-2.8); Calcium 9.2 mg/dL (8.4-10.2); Chloride 102 mmol/L (98-107); Globulin 2.9 g/dL (1.7-4.1); Glucose 132 mg/dL (70-99); HEMOLYSIS 29 (0-50); Potassium 4.4 mmol/L (3.4-5.1); Sodium 137 mmol/L (137-145); Total Protein 7.4 g/dL (6.3-8.2)
[2024-12-27 17:00] VITALS: BP 98/65; PULSE 108; RESP 20; O2SAT 95
[2024-12-27 18:23] LABS: Troponin I 0.016 ng/mL (0.01-0.034)
--- NOTE | 2024-12-27 18:40 | ED.ARRPALP ---
HPI - Arrhythmia/Palpitations General Chief Complaint: Arrhythmia/Palpitations Stated Complaint: heart palpitations Time Seen by Provider: 12/27/24 15:57 History of Present Illness HPI narrative: 69-year-old gentleman with a long history of PSVT, depression, presents today after approximately an hour and a half of rapid heart rate that has not respond to his typical Valsalva maneuvers at home. On arrival he is in an SVT at 205., complains that he is mildly dyspneic but having no chest pain. He has no other complaints today Related Data Allergies Allergy/AdvReac Type Severity Reaction Status Date / Time No Known Drug Allergies Allergy Verified 11/03/24 08:53 Review of Systems Review of Systems Narrative: Pertinent positive and negative findings as per HPI Patient History Medical History SVT (supraventricular tachycardia) Moderate episode of recurrent major depressive disorder (12/14/15) Screening for depression (12/14/15) Chronic pain syndrome (12/14/15) Alcohol abuse (12/14/15) Cannabis abuse (01/11/15) Cervical radiculopathy due to osteoarthritis of spine (01/11/15) Major depressive disorder Family History Mother Age: 91 Fibromyalgia Sister Age: 69 Overweight Sister Age: 59 Overweight Social History marital status: Smoking Status: Never smoker alcohol intake: current (1-2 A DAY ) substance use type: does not use Smoking Status: Never smoker alcohol intake frequency: 0-2 drinks per day Exam Initial Vital Signs Initial Vital Signs: Vital Signs Temperature 97.6 F 12/27/24 15:53 Pulse Rate 200 H 12/27/24 15:53 Respiratory Rate 20 12/27/24 15:53 Pulse Oximetry 95 12/27/24 15:53 Oxygen Delivery Method Room Air 12/27/24 15:53 General: Healthy appearing, in no acute distress. Able to give a complete and coherent history. Well-nourished well-developed HEENT: Moist mucous membranes, normal sclera with reactive pupils, Respiratory: Lungs are clear to auscultation, no wheezing no rales no rhonchi. Full and symmetrical air movement Cardiac: Heart rate going too fast to evaluate for murmurs Abdomen: Soft, nontender, no rebound or guarding, no flank pain Skin: Warm and dry, no rashes Neurologic: Grossly neurologically intact with no obvious asymmetries or abnormalities Extremities: No trauma, well perfused Psych: Cooperative, appropriate insight and affect Course Orders Ordered: ED Orders 12/27/24 15:58 XR chest 1V Stat Complete Blood Count AUTO DIFF Stat Comprehensive Metabolic Panel Stat Troponin I Stat EKG-12 Lead Stat 12/27/24 17:45 Troponin I Stat Discontinued Medications Adenosine (Adenosine 6 Mg/2 Ml Vial) 12 mg IV NOW ONE Stop: 12/27/24 15:58 Last Admin: 12/27/24 16:00 Dose: 12 mg Documented By: ANTOINETTE Vital Signs Vital signs: Vital Signs - 8 hr 12/27/24 15:53 12/27/24 16:18 12/27/24 16:30 Temperature 97.6 F Pulse Rate 200 H 109 H 111 H Respiratory Rate 20 20 22 Blood Pressure Pulse Oximetry 95 97 96 Oxygen Delivery Method Room Air 12/27/24 16:33 12/27/24 16:33 12/27/24 17:00 Temperature Pulse Rate 111 H 108 H Respiratory Rate 19 20 Blood Pressure 107/64 Pulse Oximetry 97 95 Oxygen Delivery Method 12/27/24 17:00 Temperature Pulse Rate Respiratory Rate Blood Pressure 98/65 Pulse Oximetry Oxygen Delivery Method MDM - Arrhythmia/Palpitations Lab Data 12/27/24 15:58 12/27/24 15:58 Labs: Lab Results 12/27/24 12/27/24 Range/Units 15:58 17:45 WBC 9.5 (4.5-11.0) X10^3/uL RBC 5.41 (4.5-5.9) X10^6/uL Hgb 17.0 (13.5-17.5) g/dL Hct 49.6 (41-53) % MCV 91.6 (80-100) fL MCH 31.4 (26-34) PG MCHC 34.2 (30-36) % RDW 12.9 (11.6-14.8) % Plt Count 234 (150-400) X10^3/uL Neut % (Auto) 58.8 (50-75) % Lymph % (Auto) 30.6 (25-40) % Wayne % (Auto) 8.8 (3-14) % Eos % (Auto) 1.3 L (2-4) % Baso % (Auto) 0.5 (0-2) % Neut # (Auto) 5600 (1372-1661) /uL Lymph # (Auto) 2900 (2303-6525) /uL Wayne # (Auto) 800 (0-900) /uL Eos # (Auto) 100 (0-450) /uL Baso # (Auto) 0 (0-100) /uL Sodium 137 (137-145) mmol/L Potassium 4.4 (3.4-5.1) mmol/L Chloride 102 (98-107) mmol/L Carbon Dioxide 27 (22-32) mmol/L BUN 18 (9-20) mg/dL Creatinine 1.18 (0.66-1.25) mg/dL Estimated GFR > 60 (>60) mL/min BUN/Creatinine Ratio 15.3 (6-22) Glucose 132 H (70-99) mg/dL Calcium 9.2 (8.4-10.2) mg/dL Total Bilirubin 0.5 (0.2-1.3) mg/dL AST 37 (17-59) IU/L ALT 25 (<50) IU/L Alkaline Phosphatase 89 (38-126) U/L Troponin I < 0.012 0.016 (0.01-0.034) ng/mL Total Protein 7.4 (6.3-8.2) g/dL Albumin 4.5 (3.5-5.0) g/dL Globulin 2.9 (1.7-4.1) g/dL Albumin/Globulin Ratio 1.6 (1.0-2.8) [facility] Narrative Medical decision making narrative: 69-year-old gentleman presents in SVT at a rate of 205. Minimally dyspneic not complaining of chest pain, multiple previous episodes differential includes SVT, V-tach, acute coronary syndrome, significant electrolyte abnormalities patient is emergently brought back to room 2, IV is placed and he is given 12 mg of adenosine with conversion of his SVT to a sinus tach initially at 120 with his rate decreasing steadily to 100 by time of discharge initial blood work was unremarkable including chemistries, CBC and single and repeat troponin chest x-ray does not show significant pathology in summary 69-year-old gentleman with long history of SVT presents in SVT without significant other pathology appreciated converted to sinus tach with a single dose of 12 mg of IV adenosine. Workup was otherwise unremarkable. We will continue his usual medications and follow up with his primary care physician is safely discharged home Discharge Plan Departure Patient Disposition: Home Clinical Impression: SVT (supraventricular tachycardia) Instructions: DI for Paroxysmal Supraventricular Tachycardia Activity Restrictions/Additional Instructions: thank you for coming in today. In a very rapid supraventricular tachycardia on arrival. Based on the story that it took multiple doses to convert you from this rhythm with your most recent episode in [place], I chose to start with 12 mg of adenosine which successfully converted you to sinus rhythm. You are initial blood work was very reassuring. We repeated a troponin, this is a heart specific enzyme. The initial troponin and repeat troponin were both unremarkable suggesting that you did not suffer any significant damage to your heart with this very rapid rhythm. Please continue all of your usual medications and follow up with Dr. Amaro as previously scheduled. If you find that you are getting worse or develop any new symptoms, please feel free to return to the emergency department for further evaluation. Referrals: Darrin Amaro MD [Primary Care Provider] - Stand Alone Forms: Patient Portal/API/Survey
[2024-12-27 18:44] VITALS: BP 98/67; PULSE 94; O2SAT 98
== END 2024-12-27 18:44 | disposition home or self-care (01) ==
PROVIDERS: Emergency Provider Emergency Medicine; PCP Family Medicine
DX: I47.10 Supraventricular tachycardia, unspecified (principal)
CPT/HCPCS: 36415; 71045; 80053; 84484; 85025; 93005; 96374; 99284; J0153

== ENCOUNTER → 2025-03-08 08:03 | Outpatient (CLI) | payer MEDICARE, SELFPAY ==
[2025-03-08 08:23] LABS: Add Manual Diff / Slide Review NO; Hematocrit 46.1 % (41-53); Hemoglobin 16.3 g/dL (13.5-17.5); Lymphocytes Absolute Auto 1600 /uL (1100-4500); Mean Corpuscular HGB Conc 35.4 % (30-36); Mean Corpuscular Hemoglobin 32.0 PG (26-34); Mean Corpuscular Volume 90.3 fL (80-100); Platelet Count 203 X10^3/uL (150-400)
[2025-03-08 08:42] LABS: Blood Urea Nitrogen 9 mg/dL (9-20); Calcium 9.2 mg/dL (8.4-10.2); Carbon Dioxide 26 mmol/L (22-32); Chloride 103 mmol/L (98-107); Estimated Glomerular Filt Rate > 60 mL/min (>60); Glucose 99 mg/dL (70-99); HEMOLYSIS < 15 (0-50); Potassium 4.2 mmol/L (3.4-5.1); Sodium 137 mmol/L (137-145)
== END ==
PROVIDERS: PCP Family Medicine; Referring Provider Internal Medicine; Visit Provider Internal Medicine
DX: I47.10 Supraventricular tachycardia, unspecified (principal)
CPT/HCPCS: 36415; 80048; 85025